=== PATIENT | male | born 1975 | race Caucasian/White ===

== ENCOUNTER 2022-01-31 01:40 | Emergency (ER) | payer OTHER ==
[2022-01-31] MEDS ORDERED: Sodium Chloride 0.9% 2.5 ML Syringe FLUSH PRN (02:15)
[2022-01-31] MEDS ORDERED: Sodium Chloride 0.9% 10 ML Syringe FLUSH PRN (02:15)
[2022-01-31] MEDS ORDERED: Ondansetron 4 MG/2 ML SDV IVPUSH ONE (02:16)
[2022-01-31] MEDS ORDERED: Morphine 4 MG/ML VIAL IVPUSH ONE (02:16)
[2022-01-31] MEDS ORDERED: HYDROmorphone 1 MG/ML Syringe IVPUSH ONE ×2 (03:01→04:12)
[2022-01-31 03:18] LABS: BLOOD UREA NITROGEN,BUN 21 mg/dL (7.0-18.0); CARBON DIOXIDE,CO2 28.3 mmol/L (21.0-32.0); CHLORIDE,CL 96 mmol/L (98-107); GLUCOSE RANDOM 149 mg/dL (74-106); LIPASE 74 U/L (73-393); POTASSIUM,K 3.5 mmol/L (3.5-5.1); SODIUM,NA 138 mmol/L (136-148)
[2022-01-31 03:19] LABS: ESTIMATED GFR 83 mL/min (>60)
[2022-01-31] MEDS ORDERED: Iopamidol 755 MG/ML 500 ML Multipack Bottle IVPUSH ONE (03:35)
[2022-01-31] MEDS ORDERED: Dicyclomine 10 MG Cap PO ONE (04:22)
[2022-01-31] MEDS ORDERED: Metoclopramide 10 MG/2 ML SDV IVPUSH ONE (04:22)
[2022-01-31] MEDS ORDERED: diphenhydrAMINE 50 MG/ML SDV IVPUSH ONE (05:24)
[2022-01-31 05:43] VITALS: BP 132/87; PULSE 86
== END 2022-01-31 05:40 | disposition home or self-care (01) ==
LOC: MW.ED 01:40
DX: R10.13 Epigastric pain (principal)
CPT/HCPCS: 36415; 71045; 74177; 80053; 83605; 83690; 84484; 85025; 93005; 96374; 96375; 96376; 99284; A9270; J1170; J1200; J2270; J2405; J2765; J3490; Q9967; 93010

== ENCOUNTER 2022-01-31 18:08 | Inpatient (IN) | payer OTHER ==
[2022-01-31] MEDS ORDERED: Sodium Chloride 0.9% 1,000 ML IV ONE (18:23)
[2022-01-31] MEDS ORDERED: HYDROmorphone 1 MG/ML Syringe IVPUSH ONE (18:23)
[2022-01-31] MEDS ORDERED: Ondansetron 4 MG/2 ML SDV IVPUSH ONE (18:23)
[2022-01-31] MEDS ORDERED: Famotidine 20 MG/2 ML SDV IVPUSH ONE (18:23)
[2022-01-31 19:10] LABS: CARBON DIOXIDE,CO2 28.7 mmol/L (21.0-32.0)
[2022-01-31] MEDS ORDERED: Ketorolac 30 MG/ML SDV IVPUSH ONE (20:04)
[2022-01-31] MEDS ORDERED: Acetaminophen 325 MG Tab PO PRN (22:34)
[2022-01-31] MEDS ORDERED: Albuterol/Ipratropium 3.0-0.5 MG/3 ML Neb Soln NEB PRN (22:34)
[2022-01-31] MEDS ORDERED: Ondansetron 4 MG/2 ML SDV IVPUSH PRN (22:34)
[2022-01-31] MEDS: Heparin Sodium 5,000 Units/ML Vial SUBCUT SCH (23:07)
[2022-01-31] MEDS: Lactated Ringers 1,000 ML IV SCH (23:07)
[2022-02-01] MEDS: Morphine 2 MG/ML SYRINGE IVPUSH PRN ×3 (02:25→19:52)
[2022-02-01] MEDS ORDERED: Carboxymethylcellulose Sodium 0.5% Ophth Soln 0.4 ML UD Box of 30 EYEBOTH PRN (02:36)
[2022-02-01] MEDS: Ketorolac 30 MG/ML SDV IVPUSH PRN ×4 (03:42→22:33)
[2022-02-01] MEDS: Heparin Sodium 5,000 Units/ML Vial SUBCUT SCH ×3 (06:01→21:52)
[2022-02-01 06:12] LABS: CARBON DIOXIDE,CO2 28.1 mmol/L (21.0-32.0); POTASSIUM,K 4.1 mmol/L (3.5-5.1)
[2022-02-01] MEDS: Lactated Ringers 1,000 ML IV SCH ×2 (06:27→16:30)
[2022-02-01] MEDS: Pantoprazole 40 MG in Sodium Chloride 0.9% 10 ML IVPUSH SCH (10:03)
[2022-02-01] MEDS ORDERED: Levofloxacin/Dextrose 5%-Water 750 MG in Premix Bag 1 BAG IV ONE (10:06)
[2022-02-02] MEDS: Lactated Ringers 1,000 ML IV SCH ×5 (00:34→17:20)
[2022-02-02] MEDS: Ketorolac 30 MG/ML SDV IVPUSH PRN ×2 (04:35→20:47)
[2022-02-02] MEDS ORDERED: ceFAZolin 2 GM in Premix Bag 1 BAG IV SCH (05:00)
[2022-02-02] MEDS: Heparin Sodium 5,000 Units/ML Vial SUBCUT SCH ×3 (05:44→22:15)
[2022-02-02] MEDS ORDERED: HYDROmorphone 1 MG/ML Syringe IVPUSH ONE (06:07)
[2022-02-02] MEDS: Pantoprazole 40 MG in Sodium Chloride 0.9% 10 ML IVPUSH SCH (08:39)
[2022-02-02] MEDS ORDERED: fentaNYL 50 MCG/ML SDV IVPUSH PRN (08:58)
[2022-02-02] MEDS ORDERED: HYDROmorphone 1 MG/ML Syringe IVPUSH PRN (08:58)
[2022-02-02] MEDS ORDERED: Albuterol 0.083% 2.5 MG/3 ML Neb Soln NEB PRN (08:58)
[2022-02-02] MEDS ORDERED: Metoclopramide 10 MG/2 ML SDV IVPUSH PRN (08:58)
[2022-02-02] MEDS ORDERED: Ondansetron 4 MG/2 ML SDV IVPUSH PRN ×2 (08:58→15:39)
[2022-02-02] MEDS ORDERED: Naloxone 0.4 MG/ML SDV IVPUSH PRN (08:58)
[2022-02-02] MEDS ORDERED: HYDROmorphone 2 MG/ML Syringe IVPUSH PRN (09:29)
[2022-02-02] MEDS ORDERED: Bupivacaine 0.25%/EPINEPHrine 1:200,000 10 ML SDV ONE (11:46)
[2022-02-02] MEDS ORDERED: Octyl 2-Cyanoacrylate 1 Tube ONE (11:46)
[2022-02-02] MEDS ORDERED: Propofol 200 MG/20 ML SDV ONE (12:03)
[2022-02-02] MEDS ORDERED: fentaNYL 250 MCG/5 ML SDV ONE ×2 (12:03→12:49)
[2022-02-02 12:13] LABS: CARBON DIOXIDE,CO2 23.7 mmol/L (21.0-32.0); POTASSIUM,K 3.9 mmol/L (3.5-5.1)
[2022-02-02] MEDS ORDERED: fentaNYL 100 MCG/2 ML SDV ONE ×2 (13:21→13:41)
[2022-02-02] MEDS ORDERED: Desflurane 240 ML Bottle ONE (14:36)
[2022-02-02] MEDS ORDERED: Glycopyrrolate 0.2 MG/ML SDV ONE (14:56)
[2022-02-02] MEDS ORDERED: Dexamethasone 4 MG/ML 5 ML MDV ONE (14:56)
[2022-02-02] MEDS ORDERED: Ondansetron 4 MG/2 ML SDV ONE (14:56)
[2022-02-02] MEDS ORDERED: Rocuronium 100 MG/10 ML MDV ONE (14:56)
[2022-02-02] MEDS ORDERED: ePHEDrine 50 MG/ML SDV ONE (14:56)
[2022-02-02] MEDS ORDERED: Sugammadex Sodium 200 MG/2 ML VIAL ONE (14:56)
[2022-02-02] MEDS ORDERED: HYDROmorphone 2 MG Tab PO PRN (15:43)
[2022-02-02] MEDS ORDERED: Levofloxacin/Dextrose 5%-Water 750 MG in Premix Bag 1 BAG IV ONE (16:00)
[2022-02-03] MEDS: Lactated Ringers 1,000 ML IV SCH ×2 (00:47→08:34)
[2022-02-03 05:53] LABS: CARBON DIOXIDE,CO2 30.3 mmol/L (21.0-32.0); POTASSIUM,K 3.9 mmol/L (3.5-5.1)
[2022-02-03] MEDS: Heparin Sodium 5,000 Units/ML Vial SUBCUT SCH ×3 (06:32→22:25)
[2022-02-03] MEDS: Pantoprazole 40 MG in Sodium Chloride 0.9% 10 ML IVPUSH SCH (08:34)
[2022-02-03] MEDS ORDERED: Acetaminophen/oxyCODONE 325-5 MG Tab PO PRN ×3 (14:58→15:01)
[2022-02-03] MEDS ORDERED: REMDESIVIR 200 MG in Sodium Chloride 0.9% 250 ML IV ONE ×2 (15:00→20:00)
[2022-02-03] MEDS: Dexamethasone 4 MG Tab PO SCH (15:26)
[2022-02-03] MEDS ORDERED: Levofloxacin/Dextrose 5%-Water 750 MG in Premix Bag 1 BAG IV SCH (16:00)
[2022-02-03] MEDS ORDERED: Iopamidol 755 MG/ML 500 ML Multipack Bottle IVPUSH STA (16:44)
[2022-02-04 06:49] LABS: CARBON DIOXIDE,CO2 29.4 mmol/L (21.0-32.0); POTASSIUM,K 3.6 mmol/L (3.5-5.1)
[2022-02-04] MEDS: Heparin Sodium 5,000 Units/ML Vial SUBCUT SCH (07:22)
[2022-02-04] MEDS: Dexamethasone 4 MG Tab PO SCH (09:08)
[2022-02-04] MEDS: Pantoprazole 40 MG in Sodium Chloride 0.9% 10 ML IVPUSH SCH (09:27)
[2022-02-04 12:08] VITALS: BP 148/96; PULSE 102
[2022-02-04] MEDS ORDERED: REMDESIVIR 100 MG in Sodium Chloride 0.9% 100 ML IV SCH ×2 (15:00→20:00)
== END 2022-02-04 12:30 | disposition home or self-care (01) | DRG 177 ==
LOC: MW.ED 18:08 → MW.MS 22:43 → MW.ICU 02-02 16:03 → MW.MS 02-03 16:59 → OBSVTOIN 02-03 21:25
PROVIDERS: ADMIT Student in an Organized Health Care Education/Training Program; ATTEND Student in an Organized Health Care Education/Training Program
PROC: 5A09457 Assistance with Respiratory Ventilation, 24-96 Consecutive Hours, Continuous Positive Airway Pressure (ICD-10-PCS; principal; 2022-02-03)
PROC: XW033E5 Introduction of Remdesivir Anti-infective into Peripheral Vein, Percutaneous Approach, New Technology Group 5 (ICD-10-PCS; 2022-02-03)
PROC: 3E0DX3Z Introduction of Anti-inflammatory into Mouth and Pharynx, External Approach (ICD-10-PCS; 2022-02-03)
DX: U07.1 COVID-19 (principal); J18.9 Pneumonia, unspecified organism; J96.01 Acute respiratory failure with hypoxia; K81.0 Acute cholecystitis; I10 Essential (primary) hypertension; K83.8 Other specified diseases of biliary tract; Z20.822 Contact with and (suspected) exposure to COVID-19; Z79.899 Other long term (current) drug therapy; Z86.16 Personal history of COVID-19; Z86.19 Personal history of other infectious and parasitic diseases; Z90.89 Acquired absence of other organs
CPT/HCPCS: 36415; 71045; 71045-26; 71275; 71275-26; 76705; 76705-26; 80048; 80053; 81001; 82947; 83605; 83690; 83735; 84100; 84484; 85025; 94660; 96372; 96374; 96375; 96376; 99284; 99285-25; A9270-GY; C9113; G0378; J0131; J0690; J1100; J1170; J1644; J1885; J1956; J2270; J2405; J2704; J3010; J3490; J7030; J7120; J8540; Q9967; U0002